=== PATIENT | female | born 1960 | race African-American/Black ===

== ENCOUNTER 2016-11-27 09:04 | Emergency (ER) | payer OTHER ==
[~2016-11-27] VITALS: Ht 162.6 cm; Wt 68.1 kg
[2016-11-27] MEDS ORDERED: METHOCARBAMOL 500 MG TABLET PO ONE (10:15)
[2016-11-27] MEDS ORDERED: KETOROLAC TROMETHAMINE 60 MG/2 ML VIAL IM ONE (10:15)
[2016-11-27 10:30] VITALS: BP 132/82
== END 2016-11-27 10:31 | disposition home or self-care (01) ==
LOC: EMS 09:06
DX: S39.012A Strain of muscle, fascia and tendon of lower back, initial encounter (principal); X58.XXXA Exposure to other specified factors, initial encounter; Y93.E5 Activity, floor mopping and cleaning; Y92.89 Other specified places as the place of occurrence of the external cause; Y99.8 Other external cause status
CPT/HCPCS: 82962; 96372; 99283; J1885